=== PATIENT | male | born 1960 | race Caucasian/White ===

== ENCOUNTER 2019-11-01 03:05 | Outpatient (CLI) | payer BC, SELFPAY ==
[2019-11-01 08:55] LABS: HCT 46.9 % (40.0-50.0); HGB 15.8 g/dL (13.5-17.5); Mean Corp. HGB Concentration 33.7 g/dL (32.0-36.0); Mean Corpuscular Hemoglobin 31.4 pg (27.0-33.0); Mean Corpuscular Volume 93.2 fL (80-95); Mean Platelet Volume 9.1 fL (8.0-11.0); Platelet Count 286 x1000/uL (130-400); RBC 5.03 m/cumm (4.50-6.00); RBC Distribution Width 12.9 % (11.8-14.1); White Blood Cell Count 5.28 k/cumm (4.4-10.8)
[2019-11-01 09:46] LABS: ALT 30 U/L (16-63); AST 16 U/L (15-37); Albumin 3.8 g/dL (3.4-5.0); Alkaline Phosphatase 86 U/L (46-116); BUN 20 mg/dL (7-18); Bilirubin, Total 0.5 mg/dL (0.2-1.0); CREATININE 0.95 mg/dL (0.70-1.30); Calcium 8.9 mg/dL (8.5-10.1); Calculated LDL 142 mg/dL (<100); Chloride 103 mmol/L (98-107); Cholesterol 218 mg/dL (<200); Glucose 100 mg/dL (74-106); HDL Cholesterol 55 mg/dL (40-60); Potassium 4.5 mmol/L (3.5-5.1); Sodium 139 mmol/L (136-145); TSH (W/Ref FT4) 1.18 uIU/mL (0.36-3.74); Total Protein 6.9 g/dL (6.4-8.2); Triglyceride 105 mg/dL (<150)
== END 2019-11-01 03:25 ==
PROVIDERS: PCP Family Medicine; Visit Provider Family Medicine
DX: R03.0 Elevated blood-pressure reading, without diagnosis of hypertension (principal)
CPT/HCPCS: 36415; 80053; 80061; 85027; 84443

== ENCOUNTER 2021-09-07 03:12 | Outpatient (CLI) | payer BC, SELFPAY ==
[2021-09-07 09:01] LABS: Hemoglobin A1C 5.4 % (<5.7)
[2021-09-07 09:48] LABS: ALT 30 U/L (16-63); AST 16 U/L (15-37); Albumin 3.7 g/dL (3.4-5.0); Alkaline Phosphatase 93 U/L (46-116); Anion Gap 6.2 mmol/L (3-11); BUN 17 mg/dL (7-18); Bilirubin, Total 0.4 mg/dL (0.2-1.0); CO2 30.8 mmol/L (21.0-32.0); CREATININE 0.8 mg/dL (0.70-1.30); Calcium 8.4 mg/dL (8.5-10.1); Calculated LDL 144 mg/dL (<100); Chloride 105 mmol/L (98-107); Cholesterol 219 mg/dL (<200); Glucose 100 mg/dL (74-106); HDL Cholesterol 60 mg/dL (40-60); Potassium 4.6 mmol/L (3.5-5.1); Sodium 142 mmol/L (136-145); Total Protein 6.9 g/dL (6.4-8.2); Triglyceride 78 mg/dL (<150)
== END 2021-09-07 03:13 | disposition home or self-care (01) ==
LOC: LBO 03:12
PROVIDERS: PCP Nurse Practitioner Family; Visit Provider Nurse Practitioner Family
DX: Z00.00 Encounter for general adult medical examination without abnormal findings (principal); Z13.1 Encounter for screening for diabetes mellitus; Z13.220 Encounter for screening for lipoid disorders
CPT/HCPCS: 36415; 80053; 80061; 83036

== ENCOUNTER 2021-12-09 12:07 | Day surgery (SDC) | payer BC, SELFPAY ==
--- NOTE | 2021-12-09 10:25 | W.PM.DSUDISC ---
Discharge Plan Disposition Patient Disposition: HOME Condition: Good Discharge Details Reason For Visit: routine health maintanence screening colonoscopy Attending Provider: Guru Duncan Primary Care Provider: Kuldip Castillo Home Meds and New Rx's Prescriptions: Continued acetaminophen [Tylenol] 325 mg capsule 325 mg PO ONCE PRN ibuprofen 200 mg Capsule 200 mg PO DAILY PRN Discontinued bisacodyl [Dulcolax (bisacodyl)] 5 mg tablet,delayed release (DR/EC) 5 mg PO ONCE Qty: 4 0RF Rx Instructions: Take according to provider's instructions for colonoscopy prep. polyethylene glycol 3350 17 gram/dose powder 17 g PO ONCE Qty: 238 0RF Rx Instructions: To be taken as directed by prescriber's office for colonoscopy prep. Discharge Instructions Instructions: Colonoscopy (DC), Colorectal Polyps (DC), Diverticulosis Diet (GEN) Additional Instructions: 1. If tolerated, consume a soft, low fiber diet for 1-2 days. 2[address] Do not drive, drink alcohol, operate machinery, make critical decisions, or do activities that require coordination or balance for 24 hours. 3. Because air was put into your colon during the procedure, expelling air from your rectum (passing gas or farting) is normal. 4. You may not have a bowel movement for 1-3 days because of the colonoscopy prep. This is normal. 5. Go directly to the emergency room if you notice any of the following: Develop chills (warm to touch), or if you have a thermometer and your temperature is above 101 Difficulty breathing or difficultly swallowing Persistent vomiting Severe abdominal pain, other than gas cramps Severe chest pain Black, tarry stools Any bleeding ? exceeding one tablespoon 6. Call your physician if the site where your intravenous was started becomes red, swollen, painful, and warm to touch. 7. Your physician has reviewed your pre-procedure medications. Please continue to take those medications as previously ordered. You will be given specific information/education regarding any changes to your medications before leaving. Referrals: Kuldip Castillo, [employer] [Primary Care Provider] - Activity:: Activity as Tolerated Diet:: As Tolerated Discharge Orders Discharge Orders: Discharge Order (Routine); Ordered 12/09/21 Ordered By: Guru Duncan DS: Diagnosis Discharge Diagnosis (1) Colorectal polyp detected on colonoscopy: Status: Acute Asessment and Plan: my office will call with the results of the biopsies
--- NOTE | 2021-12-09 10:27 | W.COLOREPORT ---
Colonoscopy Report Date of procedure: 12/09/21 Pre-op diagnosis general: positive cologuard Post-op diagnosis procedure note: other (Diverticulosis, colorectal polyps at 30 cm and 25 cm) Procedure: Diagnostic colonoscopy Surgeon: Guru Duncan Anesthesia Type: General:No Airway Estimated blood loss (mL): 20 Pathology: other (colorectal polyp a 30 cm and 25 cm) Complications: None Disposition: same day Indications: Joshua is a 61-year-old with a positive Cologuard test, who presents for diagnostic colonoscopy Prep: Miralax/Dulcolax Procedure Start Time: 14:15 Procedure End Time: 14:55 Retraction Time: 30 Findings: colorectal polyps at 25 cm (0.75 cm) and 30 cm (1cm) Procedure Description: After the induction of monitored anesthetic care, and with the patient in left lateral decubitus position, I began by performing an external anorectal exam.? Perineum and skin were normal, as was the anal verge.? There was no evidence of external hemorrhoids.? Next, I performed a digital rectal exam.? I did not appreciate any abnormal findings.? Next, I advanced a colonoscope into the rectal vault.? I performed retroflexion.? I did see signs of grade 1 internal hemorrhoids.? Using insufflation, I then advanced the colonoscope beyond the rectal folds and into the sigmoid colon before advancing towards the cecum.? The quality of the prep was excellent.? The scope was noted to be in the cecum by identification of the ileocecal valve and appendiceal orifice.? I then began withdrawing the colonoscope using repeated irrigation as necessary for full evaluation of the colonic mucosa. There was evidence of sigmoid diverticulosis. Around 30 cm from the anal verge I identified a sessile polyp. ?It appeared to be 1 cm in diameter. ?I was able to remove this with a cold forcep. ?I examined the site, and there was minimal bleeding. Around 25 cm from the anal verge I identified a second flat 0.75 cm polyp. ?I was able to remove this with a cold biopsy forcep. ?I examined the site, and there was minimal bleeding. ?Once this was completed, I continued to withdraw the scope and examine the remainder of the colonic mucosa.?Once this was completed, I continued to withdraw the scope and examine the remainder of the colonic mucosa. Once the scope was withdrawn to the level of the rectum, great care was taken to examine portions of the rectal folds.? Finally, the scope was withdrawn and the patient was brought to the same-day surgery recovery unit as the anesthetic wore off. ?The findings and instructions were shared with the patient prior to discharge.
[2021-12-09 12:19] VITALS: BP 174/113; PULSE 99; RESP 19; TEMP 36.6; O2SAT 99
[2021-12-09] MEDS: Lactated Ringers 1,000 ML 80 ML IV (12:41)
--- NOTE | 2021-12-09 13:14 | W.ANESPRE ---
General Info Date of Service Date Performed: 12/09/21 Height: 6 ft Weight: 104.1 kg Body Mass Index (BMI): 31.1 Surgical Procedure: Operation Date: 12/09/21 14:20 Proposed Procedure Side Surgeon elijah Duncan MD Meds Allergies and Home Medications Allergies Allergy/AdvReac Type Severity Reaction Status Date / Time No Known Allergies Allergy Verified 12/09/21 12:26 Home Medication Medication Instructions Recorded acetaminophen 325 mg capsule 325 mg PO ONCE PRN 12/06/21 (Tylenol) ibuprofen 200 mg capsule 200 mg PO DAILY PRN 12/08/21 Current Visit Medications: Current Medications Generic Name Dose Route Start Last Admin Trade Name Freq PRN Reason Stop Dose Admin Ringer's Solution 1,000 mls @ 80 mls/hr 12/09/21 06:00 12/09/21 12:41 IV 01/07/22 23:59 80 mls/hr INFUSION LUCINDA Administration IV Miscellaneous Supplies 1 each 12/09/21 06:00 Iv Access IV 01/07/22 23:59 DIRECTED LUCINDA Sodium Chloride 0 ml 12/09/21 06:00 Normal Saline Flush 10 Ml Syr IV 01/07/22 23:59 PRN PRN Sodium Chloride 0 ml 12/09/21 06:00 Normal Saline 10 Ml Vial IJ 01/07/22 23:59 DIRECTED PRN Sterile Water 0 ml 12/09/21 06:00 Water,Injection,Sterile 10 Ml Vial IJ 01/07/22 23:59 DIRECTED PRN PFSH Active Problems Active Problems: Problem Status Onset Code Elevated blood pressure reading R03.0 Obesity (BMI 30.0-34.9) E66.9 Positive colorectal cancer screening using Cologuard test R19.5 Surgical History Surgical History History of tonsillectomy Hx of cataract extraction Tobacco Smoking/Tobacco Use Status: Never Passive smoking exposure: No Second hand exposure: No Alcohol Alcohol Intake: current Alcohol intake frequency: a few times a week Alcohol type: hard liquor Substance Use Substance use: Never Substance use type: does not use Vital Signs and Lab Results Vital Signs Most Recent Vital Signs in EMR: Most Recent Vital Signs Temp Pulse Resp BP Pulse Ox 36.6 C 99 H 19 174/113 H 99 12/09/21 12:19 12/09/21 12:19 12/09/21 12:19 12/09/21 12:19 12/09/21 12:19 Lab Results Blood Type / Crossmatch: No Data to Display Complete Blood Count: No Data to Display Complete Metabolic Panel: No Data to Display Liver Function Panel: No Data to Display Coagulation Panel: No Data to Display Cardiac Panel: No Data to Display Arterial Blood Gas: No Data to Display Venous Blood Gas: No Data to Display Pancreas Panel: No Data to Display Thyroid Panel: No Data to Display Infectious Disease: No Data to Display Blood Cultures: No Data to Display Toxicology Panel: No Data to Display Anesthesia Assessment and Plan Anesthesia History Personal History: No History of Anesthesia Complications and Delayed Emergence Family History: No Family History of Anesthesia Complications Exercise Tolerance Exercise Tolerance: Metabolic Equivalents>4 Pertinent Negatives Pertinent Negatives: No Symptoms of GERD Cardiac & Pulmonary Exam Cardiac Exam: Normal S1/S2 Heart Sounds Pulmonary Exam: Clear Bilateral Breath Sounds Implantable Cardiac Device Does patient have a Pacemaker or an ICD?: No Airway Exam Known Difficult Airway: No Mallampati Class: 2 Mouth Opening: Normal (> 3cm) Thyromental Distance: Greater than 3 cm Neck Range of Motion: Full ROM Neck Circumference: Normal Teeth Condition: Normal Dentition ASA Classification ASA Score: ASA 2 Emergency Case?: No NPO Status NPO Status: NPO Clears >2 hours, Solids >8 hours Anesthesia Plan Resuscitation Status: Full Code Anesthesia Technique: General Anesthesia Airway Planned: Natural Airway Monitors Used: Standard Monitors
[2021-12-09 13:58] VITALS: BMI 31.1
--- NOTE | 2021-12-09 14:48 | BOWEL_PTH ---
PATIENT: Joshua De León LOC: [facility] U#:[id number] AGE/SX: 61/M ROOM: RE12/09/[address]: Guru Duncan MD : [id number] BED: DIS: 12/09/2021 SPEC #: [id number] RECD: 12/09/21 17:46 STATUS: JALEN REQ #: [id number] YAIMA: 12/09/21 14:[address]: Guru Duncan DEPT: Surgical Specimen RECD BY: Yun Patton ENTERED: 12/09/21 17:48 SP TYPE: Bowel OTHR DR: Kuldip Castillo, LICENSED MIDWIFE Tissues: 1 - BIOPSY BOWEL 2 - BIOPSY BOWEL Procedures: GROSS AND MICRO LEVEL 4 Comments: [id number]
[2021-12-09 15:00] VITALS: BP 134/92; PULSE 84; RESP 16; TEMP 36.6; O2SAT 95
--- NOTE | 2021-12-09 15:17 | W.ANESPOSTOP ---
Postoperative Evaluation Date, Time and Location Date Performed: 12/09/21 Time Performed: 15:18 Patient Location: Day Surgery Unit Vital Signs Most Recent Imported Vital Signs: Most Recent Vital Signs Temp Pulse Resp BP Pulse Ox 36.6 C 84 16 134/92 H 95 12/09/21 15:00 12/09/21 15:00 12/09/21 15:00 12/09/21 15:00 12/09/21 15:00 Pain Score Most Recent Pain Score: Most Recent Pain Score Pain Level 0 12/09/21 15:00 Assessment Mental Status: Awake (Alert & Oriented to Patient Baseline) Airway and Respiratory Function: Patent airway with normal (patient baseline) respiratory exam Cardiovascular Function: Hemodynamically Stable Hydration Status: Adequately Hydrated Nausea & Vomiting: No Nausea or Vomiting Pain: Pt. Denies Any Pain Peripheral Nerve Block: Patient did not receive a nerve block
[2021-12-09 15:21] VITALS: BP 156/106; PULSE 84; RESP 18; TEMP 36.5; O2SAT 97
== END 2021-12-09 15:37 | disposition home or self-care (01) ==
PROVIDERS: PCP Nurse Practitioner Family; Visit Provider Surgery
PROC: 0DJD8ZZ Inspection of Lower Intestinal Tract, Via Natural or Artificial Opening Endoscopic (ICD-10-PCS; CPT 45378; principal; 2021-12-09 14:15)
DX: R19.5 Other fecal abnormalities (principal); K63.5 Polyp of colon; K57.30 Diverticulosis of large intestine without perforation or abscess without bleeding; K64.0 First degree hemorrhoids
CPT/HCPCS: 45380; 88305; J2704

== ENCOUNTER 2024-10-17 02:38 | Outpatient (CLI) | payer MEDICARE, BC, SELFPAY ==
[2024-10-17 10:57] LABS: Calculated LDL 166 mg/dL (<100); Cholesterol 244 mg/dL (<200); HDL Cholesterol 64 mg/dL (>or=40); Triglyceride 72 mg/dL (<150)
[2024-10-17 18:45] LABS: PSA, Screening 1.8 ng/mL (<=4.5)
== END 2024-10-17 02:39 | disposition home or self-care (01) ==
LOC: LBO 02:38
PROVIDERS: PCP Nurse Practitioner Family; Visit Provider Nurse Practitioner Family
DX: Z13.6 Encounter for screening for cardiovascular disorders (principal); Z12.5 Encounter for screening for malignant neoplasm of prostate
CPT/HCPCS: 36415; 80061; 84153